=== PATIENT | male | born 1975 | race Two or more races ===

== ENCOUNTER 2018-06-19 16:57 | Observation (INO) | payer OTHER ==
[2018-06-19] MEDS ORDERED: Sodium Chloride 0.9% 1,000 ML IV ONE ×2 (17:15→18:38)
[2018-06-19] MEDS ORDERED: Ondansetron 4 MG/2 ML SDV IVPUSH PRN (17:29)
[2018-06-19 17:45] LABS: CHLORIDE,CL 104 mEq/L (98-106); SODIUM,NA 140 mEq/L (136-145)
--- NOTE | 2018-06-19 17:45 | EDM.PDOC ---
ED HPI GENERAL MEDICAL PROBLEM - General Chief Complaint: Abdominal Pain Stated Complaint: abd pain Time Seen by Provider: 06/19/18 17:13 - History of Present Illness INITIAL COMMENTS - FREE TEXT/NARRATIVE: Liam is a 43 year old male who presents to the ED via [facility] with c/o nausea and syncopal episode. He reports since Friday he has been nauseated and had a weird taste in his mouth. Describes the taste as a sweet, oil like taste. He reports that he has had a very poor appetite all week and has maybe only eaten two pieces of toast all week. Reports he has been more thirsty and has been drinking 2-3 bottles of water/day. He reports that yesterday he thought he was starting to feel better, but then today felt very nauseated again. 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 He reports he had a witnessed syncopal episode when he stood up from the tractor. He does report just prior to this he got very nauseated and vomited x1. Reports he has vomited a couple times the past week as well. EMS was then dispatched to the field. Does report he has had a dry cough and some sinus congestion, but otherwise has had no other symptoms. He denies any fever, chills, weight loss, chest pain, shortness of breath, headache, dizziness, abdominal pain, diarrhea, constipation, dysuria, urinary frequency, hematuria, hematemesis, blood in his stool. He is originally from [facility]. He has been in the [place] since [place]. He works for a [employer] here 9 months out of the year. Denies any recent illness. Denies any drug or alcohol use. Left Abdomen Pain Score (Numeric/FACES): 4 - Related Data Allergies Allergy/AdvReac Type Severity Reaction Status Date / Time vinager Allergy Cannot Uncoded 06/19/18 17:12 Remember Home Meds: Home Meds Levothyroxine 125 mcg PO DAILY 06/19/18 [History] ED ROS GENERAL - Review of Systems Review Of Systems: ROS reveals no pertinent complaints other than HPI. Constitutional: Reports: Decreased Appetite. Denies: Fever, Chills, Weakness, Fatigue HEENT: Reports: Rhinitis Respiratory: Reports: Cough. Denies: Shortness of Breath, Sputum Cardiovascular: Reports: Syncope. Denies: Chest Pain, Blood Pressure Problem, Dyspnea on Exertion, Edema, Lightheadedness, Palpitations Endocrine: Reports: Polydypsia. Denies: Fatigue, Polyuria GI/Abdominal: Reports: Decreased Appetite, Nausea, Vomiting. Denies: Abdominal Pain, Black Stool, Bloody Stool, Constipation, Diarrhea, Distension, Hematemesis , Hematochezia, Melena : Reports: No Symptoms. Denies: Dysuria, Frequency, Urgency Musculoskeletal: Reports: No Symptoms Skin: Reports: Diaphoresis Neurological: Reports: Headache, Syncope. Denies: Confusion, Numbness, Tingling , Weakness Psychiatric: Reports: No Symptoms Hematologic/Lymphatic: Reports: No Symptoms Immunologic: Reports: No Symptoms ED EXAM, GI/ABD - Physical Exam Exam: See Below Exam Limited By: No Limitations General Appearance: Alert, WD/WN, No Apparent Distress Eyes: Bilateral: Normal Appearance, EOMI Ears: Normal External Exam, Normal Canal, Hearing Grossly Normal, Normal TMs Nose: Normal Inspection, Normal Mucosa, No Blood Throat/Mouth: Normal Inspection, Normal Lips, Normal Teeth, Normal Gums, Normal Oropharynx, Normal Voice, No Airway Compromise Head: Atraumatic, Normocephalic Neck: Normal Inspection, Supple, Non-Tender, Full Range of Motion Respiratory/Chest: No Respiratory Distress, Lungs Clear, Normal Breath Sounds, No Accessory Muscle Use, Chest Non-Tender Cardiovascular: Normal Peripheral Pulses, Regular Rate, Rhythm, No Gallop, No JVD, No Murmur, No Rub, Tachycardia. No: No Edema GI/Abdominal Exam: Normal Bowel Sounds, Soft, No Distention, No Abnormal Bruit, Tender (LUQ). No: Distended, Guarding, Rigid, Rebound, Abnormal Bowel Sounds Back Exam: Normal Inspection, Full Range of Motion. No: CVA Tenderness (L), CVA Tenderness (R) Extremities: Normal Inspection, Normal Range of Motion, Non-Tender, Normal Capillary Refill, No Pedal Edema Neurological: Alert, Oriented, CN II-XII Intact, Normal Cognition, Normal Gait, Normal Reflexes, No Motor/Sensory Deficits Psychiatric: Normal Affect, Normal Mood Skin Exam: Warm, Dry, Intact, Normal Color, No Rash Lymphatic: No Adenopathy Course - Vital Signs Last Recorded V/S: Last Vital Signs Temp 98.6 F 06/19/18 17:00 Pulse 116 H 06/19/18 17:00 Resp 16 06/19/18 17:00 BP 121/83 06/19/18 17:00 Pulse Ox 97 06/19/18 17:00 - Orders/Labs/Meds Orders: Active Orders 24 hr Category Date Time Status CXR [Chest 1V Frontal] [CR] Stat Exams 06/19/18 17:28 Taken Ondansetron [Zofran] Med 06/19/18 17:29 Active 4 mg IVPUSH Q6H PRN Sodium Chloride 0.9% [Normal Saline] 1,000 ml Med 06/19/18 18:38 Active IV .BOLUS Medication Orders Sodium Chloride (Normal Saline) 1,000 mls @ 999 mls/hr IV .BOLUS ONE Stop: 06/19/18 19:38 Ondansetron HCl (Zofran) 4 mg IVPUSH Q6H PRN PRN Reason: Nausea/Vomiting Last Admin: 06/19/18 17:34 Dose: 4 mg Labs: Laboratory Tests 06/19/18 06/19/18 06/19/18 Range/Units 17:09 17:09 17:09 WBC 10.8 H (5.0-10.0) 10^3/uL RBC 5.06 (4.50-6.00) 10^6/uL Hgb 15.1 (14.0-18.0) g/dL Hct 44.2 (40.0-54.0) % MCV 87.4 (82.0-94.0) fL MCH 29.8 (27.0-32.0) pg MCHC 34.2 (33.0-38.0) g/dL RDW Coeff of Taran 13.1 (11.0-15.0) % Plt Count 276 (150-400) 10^3/uL Neut % (Auto) 64.2 (35-85) % Lymph % (Auto) 25.0 (10-55) % [place] % (Auto) 9.4 (0-16) % Eos % (Auto) 1.0 (0-5) % Baso % (Auto) 0.4 (0-3) % Neut # (Auto) 6.96 (1.80-7.00) 10^3/uL Lymph # (Auto) 2.71 (1.00-4.80) 10^3/uL [place] # (Auto) 1.02 H (0.00-0.80) 10^3/uL Eos # (Auto) 0.11 (0.00-0.45) 10^3/uL Baso # (Auto) 0.04 10^3/uL D-Dimer, Quantitative (0.00-0.50) Sodium 140 (136-145) mEq/L Potassium 4.4 (3.5-5.0) mEq/L Chloride 104 (98-106) mEq/L Carbon Dioxide 26 (21-32) mmol/L BUN 31 H D (7-18) mg/dL Creatinine 1.0 (0.7-1.3) mg/dL Est Cr Clr Drug Dosing 97.33 mL/min Estimated GFR (MDRD) > 60 (>=60) mL/min Glucose 97 (75-99) mg/dL Calcium 8.5 (8.4-10.1) mg/dL Total Bilirubin 0.5 (0.0-1.0) mg/dL AST 22 (15-37) U/L ALT 45 (12-78) U/L Alkaline Phosphatase 78 (46-116) U/L Lactate Dehydrogenase 169 (100-190) U/L Creatine Kinase 180 (35-232) U/L Troponin I < 0.017 (0.00-0.06) ng/mL C-Reactive Protein 0.9 H (0.2-0.8) mg/dL Total Protein 7.0 (6.4-8.2) g/dL Albumin 3.6 (3.4-5.0) g/dL Amylase 37 (25-115) U/L TSH, Ultra Sensitive 4.04 (0.36-5.60) uIU/mL Urine Color Yellow (YELLOW) Urine Appearance Clear (CLEAR) Urine pH 5.0 (4.5-8.0) Ur Specific [place] 1.020 (1.003-1.020) Urine Protein Negative (NEGATIVE) mg/dL Urine Glucose (UA) Negative (NEGATIVE) mg/dL Urine Ketones 15 H (NEGATIVE) mg/dL Urine Occult Blood Negative (NEGATIVE) Urine Nitrite Negative (NEGATIVE) Urine Bilirubin Negative (NEGATIVE) Urine Urobilinogen 0.2 (0.2-1.0) EU/dL Ur Leukocyte Esterase Negative (NEGATIVE) Urine RBC Not seen (0-5) /HPF Urine WBC Not seen (0-5) /HPF /16/18 Range/Units 17:27 WBC (5.0-10.0) 10^3/uL RBC (4.50-6.00) 10^6/uL Hgb (14.0-18.0) g/dL Hct (40.0-54.0) % MCV (82.0-94.0) fL MCH (27.0-32.0) pg MCHC (33.0-38.0) g/dL RDW Coeff of Taran (11.0-15.0) % Plt Count (150-400) 10^3/uL Neut % (Auto) (35-85) % Lymph % (Auto) (10-55) % [place] % (Auto) (0-16) % Eos % (Auto) (0-5) % Baso % (Auto) (0-3) % Neut # (Auto) (1.80-7.00) 10^3/uL Lymph # (Auto) (1.00-4.80) 10^3/uL [place] # (Auto) (0.00-0.80) 10^3/uL Eos # (Auto) (0.00-0.45) 10^3/uL Baso # (Auto) 10^3/uL D-Dimer, Quantitative 0.43 (0.00-0.50) Sodium (136-145) mEq/L Potassium (3.5-5.0) mEq/L Chloride (98-106) mEq/L Carbon Dioxide (21-32) mmol/L BUN (7-18) mg/dL Creatinine (0.7-1.3) mg/dL Est Cr Clr Drug Dosing mL/min Estimated GFR (MDRD) (>=60) mL/min Glucose (75-99) mg/dL Calcium (8.4-10.1) mg/dL Total Bilirubin (0.0-1.0) mg/dL AST (15-37) U/L ALT (12-78) U/L Alkaline Phosphatase (46-116) U/L Lactate Dehydrogenase (100-190) U/L Creatine Kinase (35-232) U/L Troponin I (0.00-0.06) ng/mL C-Reactive Protein (0.2-0.8) mg/dL Total Protein (6.4-8.2) g/dL Albumin (3.4-5.0) g/dL Amylase (25-115) U/L TSH, Ultra Sensitive (0.36-5.60) uIU/mL Urine Color (YELLOW) Urine Appearance (CLEAR) Urine pH (4.5-8.0) Ur Specific [place] (1.003-1.020) Urine Protein (NEGATIVE) mg/dL Urine Glucose (UA) (NEGATIVE) mg/dL Urine Ketones (NEGATIVE) mg/dL Urine Occult Blood (NEGATIVE) Urine Nitrite (NEGATIVE) Urine Bilirubin (NEGATIVE) Urine Urobilinogen (0.2-1.0) EU/dL Ur Leukocyte Esterase (NEGATIVE) Urine RBC (0-5) /HPF Urine WBC (0-5) /HPF Meds: Medications Generic Name Dose Route Start Last Admin Trade Name Freq PRN Reason Stop Dose Admin Sodium Chloride 1,000 mls @ 999 mls/hr 06/19/18 18:38 Normal Saline IV 06/19/18 19:38 .BOLUS ONE Ondansetron HCl 4 mg 06/19/18 17:29 06/19/18 17:34 Zofran IVPUSH 4 mg Q6H PRN Administration Nausea/Vomiting Discontinued Medications Generic Name Dose Route Start Last Admin Trade Name Freq PRN Reason Stop Dose Admin Sodium Chloride 1,000 mls @ 999 mls/hr 06/19/18 17:15 06/19/18 17:22 Normal Saline IV 06/19/18 18:15 999 mls/hr .BOLUS ONE Administration Sodium Chloride Confirm 06/19/18 18:12 Normal Saline Administered 06/19/18 18:13 Dose 1,000 mls @ as directed .ROUTE .STK-MED ONE - Re-Assessments/Exams Free Text/Narrative Re-Assessment/Exam: 06/19/18 17:20 While assessing patient, had him sit forward to listen to posterior lung sounds. Patient sat up without difficulty and then became unresponsive and slouched over. He did come to within about 10-15 seconds. Heart rate did rise to 139 bpm during episode. Following this he was alert and oriented. Does now c/ o a headache. Patient reports he has no insurance and would like as little done as possible. IVF started. Consulted with [facility]. 06/19/18 18:00 Lab work is all benign. BUN elevated to 31. I suspect patient symptoms may be caused by dehydration. Will give 2 L bolus of fluids and continue to monitor. Departure - Departure Time of Disposition: 18:39 Disposition: Refer to Observation Condition: Good Clinical Impression: Dehydration, Gastroenteritis, Orthostatic syncope - Discharge Information *PRESCRIPTION DRUG MONITORING PROGRAM REVIEWED*: Not Applicable *COPY OF PRESCRIPTION DRUG MONITORING REPORT IN PATIENT THOMAS: Not Applicable Referrals: Juanis Harvey, [facility] [Primary Care Provider] - Forms: ED Department Discharge - Problem List & Annotations (1) Dehydration SNOMED Code(s): 04971184 Code(s): E86.0 - DEHYDRATION Status: Acute Current Visit: Yes (2) Gastroenteritis SNOMED Code(s): 58957781 Code(s): K52.9 - NONINFECTIVE GASTROENTERITIS AND COLITIS, UNSPECIFIED Status: Acute Current Visit: Yes (3) Orthostatic syncope SNOMED Code(s): 955509086 Code(s): I95.1 - ORTHOSTATIC HYPOTENSION Status: Acute Current Visit: Yes - Problem List Review Problem List Initiated/Reviewed/Updated: Yes - My Orders Last 24 Hours: My Active Orders 06/19/18 17:28 CXR [Chest 1V Frontal] [CR] Stat 06/19/18 17:29 Ondansetron [Zofran] 4 mg IVPUSH Q6H PRN 06/19/18 18:38 Sodium Chloride 0.9% [Normal Saline] 1,000 ml IV .BOLUS - Assessment/Plan Admission H&P: Please use this note as an admission H&P Last 24 Hours: My Active Orders 06/19/18 17:28 CXR [Chest 1V Frontal] [CR] Stat 06/19/18 17:29 Ondansetron [Zofran] 4 mg IVPUSH Q6H PRN 06/19/18 18:38 Sodium Chloride 0.9% [Normal Saline] 1,000 ml IV .BOLUS Plan: Will admit patient to observation for continued cardiac monitoring and IVF. I suspect patient's dehydration is causing orthostatic syncopal episodes, as patient pulse increased to 139 when going from lying to sitting, during witnessed syncopal episode. I suspect patient will improve greatly with IVF overnight. Anticipate discharge tomorrow as long as cardiac monitoring etc. is normal. Discussed this with patient who was agreeable to overnight observation stay. Patient transferred to floor in satisfactory condition.
[2018-06-19] MEDS ORDERED: Sodium Chloride 0.9% 1,000 ML ONE (18:12)
[2018-06-19] MEDS ORDERED: Acetaminophen 325 MG Tab PO PRN (19:41)
[2018-06-19] MEDS: Sodium Chloride 0.9% 1,000 ML IV SCH (19:51)
[2018-06-20] MEDS: Sodium Chloride 0.9% 1,000 ML IV SCH (03:16)
[2018-06-20] MEDS ORDERED: Levothyroxine 125 MCG Tab PO SCH (07:00)
[2018-06-20] MEDS ORDERED: Pantoprazole 40 MG Vial ONE (08:10)
[2018-06-20] MEDS ORDERED: Pantoprazole 40 MG Vial IVPUSH ONE (08:12)
[2018-06-20 08:32] LABS: CHLORIDE,CL 107 mEq/L (98-106); SODIUM,NA 141 mEq/L (136-145)
--- NOTE | 2018-06-20 09:16 | PCM.DCSUM1 ---
Discharge Summary - Hospital Course HPI Initial Comments: Liam is a 43 year old male, with PMH significant for hypothyroidism, who was admitted observation status to the hospital yesterday evening 06/19/2018. He had reportedly had nausea since about Friday, as well as couple episodes of vomiting. Did report bad taste in his mouth the last week and had not been eating or drinking much. At time of ED presentation he was working out in the field and had a witnessed syncopal episode, so EMS was called. While in ED he did have another syncopal episode. Patient was given 2 L fluid bolus. Labs were unremarkable in ED. He was monitored overnight. Did continue to have episodes of tachycardia. BP remained stable while lying. Orthostatic VS were positive. BP dropped to 95/53 while standing. Patient had two near syncopal episodes when he attempted to get up to the bathroom, one last night and one this morning. Did not have LOC, but did get light headed and tachycardic. This morning he had emesis with gross blood as well as black stool. Reports this is the first time this has happened. Fecal occult was positive in both. Hgb did drop from 15.1 to 12.3, however some drop likely dilutional. Labs otherwise stable. This morning patient reports other than when he is getting up, he feels fine. He does feel nauseated at times. Did have one 500 mL emesis with gross blood this morning as well as black bowel movement. He denies any chest pain, shortness of breath, dizziness while lying. It was noted per family that he drinks energy drinks quite frequently. Denies any ETOH or drug use. He is originally from [facility]. He works for a [employer] here 9 months out of the year. Consulted with [facility] regarding new onset of upper GI bleed and syncopal episodes. Spoke with Dr. Salter, who accepted the patient for transfer. VSS at time of discharge. Patient will receive 2 L fluid bolus prior to transfer. He will have fluid bolus infusing while enroute. Close monitoring of VS. Discussed risks and benefits of transfer with patient. Risks of transfer include worsening of condition, , and MVA enroute. Benefits of transfer include higher level of care and GI consultation. Risks of nontransfer include worsening of condition, , and no intervention capability. Benefits of nontransfer include convenience and close proximity to home. Patient verbalized understanding and was agreeable to transfer. Patient will be transferred via [facility] to [facility]. Dr. Salter accepting physician. Diagnosis: Stroke: No - Discharge Data Discharge Date: 06/20/18 Discharge Disposition: DC/Tfer to Acute Hospital 02 Condition: Fair - Discharge Diagnosis/Problem(s) (1) Upper GI bleed SNOMED Code(s): 14673445 ICD Code: K92.2 - GASTROINTESTINAL HEMORRHAGE, UNSPECIFIED Status: Acute (2) Orthostatic syncope SNOMED Code(s): 416126033 ICD Code: I95.1 - ORTHOSTATIC HYPOTENSION Status: Acute - Patient Instructions Diet: NPO Activity: Bedrest - Discharge Plan *PRESCRIPTION DRUG MONITORING PROGRAM REVIEWED*: Not Applicable *COPY OF PRESCRIPTION DRUG MONITORING REPORT IN PATIENT THOMAS: Not Applicable Home Medications: Home Meds Levothyroxine 125 mcg PO DAILY 06/19/18 [History] Forms: ED Department Discharge Referrals: Juanis Harvey, [facility] SPECIALIST [Primary Care Provider] - - Discharge Summary/Plan Comment DC Time >30 min.: Yes (assessment, lab review, coordinating transfer, discharge summary) - General Info Date of Service: 06/20/18 Admission Dx/Problem (Free Text: Orthostatic Syncope Dehydration Upper GI Bleed Subjective Update: Liam reports he had another episode this morning when he attempted to get up to the bathroom to have a bowel movement. Nursing reports while on the toliet he got nauseated and had a 500 mL emesis with gross blood. He then had a very dark stool. He reports during this he felt very poorly, but now since he has gotten back into bed he feels fine again. Continues to deny any abdominal pain, chest pain, shortness of breath. He is nauseated. He is resting comfortably in bed at time of rounds. Functional Status: Reports: Pain Controlled, Urinating, New Symptoms ( hematemesis & melena). Denies: Tolerating Diet, Ambulating - Review of Systems General: Reports: Weakness, Fatigue. Denies: Fever, Chills, Appetite HEENT: Reports: Sinus Congestion. Denies: Visual Changes Pulmonary: Reports: Cough. Denies: Shortness of Breath, Sputum, Hemoptysis, Wheezing Cardiovascular: Reports: Lightheadedness. Denies: Chest Pain, Palpitations, Dyspnea on Exertion, Orthopnea, Edema Gastrointestinal: Reports: Decreased Appetite, Melena, Nausea, Vomiting (gross blood ). Denies: Abdominal Pain, Constipation, Diarrhea, Hematochezia Genitourinary: Reports: No Symptoms Musculoskeletal: Reports: No Symptoms Skin: Reports: Pallor Neurological: Reports: Dizziness, Headache (frontal), Syncope, Weakness. Denies : Confusion, Numbness, Tingling, Tremors, Change in Speech Psychiatric: Reports: No Symptoms - Patient Data Vitals - Most Recent: Last Vital Signs Temp 98.1 F 06/20/18 08:19 Pulse 109 H 06/20/18 08:19 Resp 20 06/20/18 08:19 BP 114/81 06/20/18 08:19 Pulse Ox 98 06/20/18 08:19 Weight - Most Recent: 274 lb 8 oz I&O - Last 24 hours: Intake & Output 06/19/18 06/20/18 06/20/18 22:59 06:59 14:59 Intake Total 2227 Output Total 800 Balance 1427 Lab Results - Last 24 hrs: Laboratory Results - last 24 hr 06/19/18 06/19/18 06/19/18 Range/Units 17:09 17:09 17:09 WBC 10.8 H (5.0-10.0) 10^3/uL RBC 5.06 (4.50-6.00) 10^6/uL Hgb 15.1 (14.0-18.0) g/dL Hct 44.2 (40.0-54.0) % MCV 87.4 (82.0-94.0) fL MCH 29.8 (27.0-32.0) pg MCHC 34.2 (33.0-38.0) g/dL RDW Coeff of Taran 13.1 (11.0-15.0) % Plt Count 276 (150-400) 10^3/uL Neut % (Auto) 64.2 (35-85) % Lymph % (Auto) 25.0 (10-55) % [place] % (Auto) 9.4 (0-16) % Eos % (Auto) 1.0 (0-5) % Baso % (Auto) 0.4 (0-3) % Neut # (Auto) 6.96 (1.80-7.00) 10^3/uL Lymph # (Auto) 2.71 (1.00-4.80) 10^3/uL [place] # (Auto) 1.02 H (0.00-0.80) 10^3/uL Eos # (Auto) 0.11 (0.00-0.45) 10^3/uL Baso # (Auto) 0.04 10^3/uL D-Dimer, Quantitative (0.00-0.50) Sodium 140 (136-145) mEq/L Potassium 4.4 (3.5-5.0) mEq/L Chloride 104 (98-106) mEq/L Carbon Dioxide 26 (21-32) mmol/L BUN 31 H D (7-18) mg/dL Creatinine 1.0 (0.7-1.3) mg/dL Est Cr Clr Drug Dosing 97.33 mL/min Estimated GFR (MDRD) > 60 (>=60) mL/min Glucose 97 (75-99) mg/dL Calcium 8.5 (8.4-10.1) mg/dL Total Bilirubin 0.5 (0.0-1.0) mg/dL AST 22 (15-37) U/L ALT 45 (12-78) U/L Alkaline Phosphatase 78 (46-116) U/L Lactate Dehydrogenase 169 (100-190) U/L Creatine Kinase 180 (35-232) U/L Troponin I < 0.017 (0.00-0.06) ng/mL C-Reactive Protein 0.9 H (0.2-0.8) mg/dL Total Protein 7.0 (6.4-8.2) g/dL Albumin 3.6 (3.4-5.0) g/dL Amylase 37 (25-115) U/L TSH, Ultra Sensitive 4.04 (0.36-5.60) uIU/mL Urine Color Yellow (YELLOW) Urine Appearance Clear (CLEAR) Urine pH 5.0 (4.5-8.0) Ur Specific [place] 1.020 (1.003-1.020) Urine Protein Negative (NEGATIVE) mg/dL Urine Glucose (UA) Negative (NEGATIVE) mg/dL Urine Ketones 15 H (NEGATIVE) mg/dL Urine Occult Blood Negative (NEGATIVE) Urine Nitrite Negative (NEGATIVE) Urine Bilirubin Negative (NEGATIVE) Urine Urobilinogen 0.2 (0.2-1.0) EU/dL Ur Leukocyte Esterase Negative (NEGATIVE) Urine RBC Not seen (0-5) /HPF Urine WBC Not seen (0-5) /HPF 06/19/18 06/20/18 06/20/18 Range/Units 17:27 08:14 08:14 WBC 10.4 H (5.0-10.0) 10^3/uL RBC 4.13 L (4.50-6.00) 10^6/uL Hgb 12.3 L (14.0-18.0) g/dL Hct 37.3 L (40.0-54.0) % MCV 90.3 (82.0-94.0) fL MCH 29.8 (27.0-32.0) pg MCHC 33.0 (33.0-38.0) g/dL RDW Coeff of [place] 13.2 (11.0-15.0) % Plt Count 271 (150-400) 10^3/uL Neut % (Auto) 61.7 (35-85) % Lymph % (Auto) 28.3 (10-55) % [place] % (Auto) 8.8 (0-16) % Eos % (Auto) 1.0 (0-5) % Baso % (Auto) 0.2 (0-3) % Neut # (Auto) 6.39 (1.80-7.00) 10^3/uL Lymph # (Auto) 2.93 (1.00-4.80) 10^3/uL [place] # (Auto) 0.91 H (0.00-0.80) 10^3/uL Eos # (Auto) 0.10 (0.00-0.45) 10^3/uL Baso # (Auto) 0.02 10^3/uL D-Dimer, Quantitative 0.43 (0.00-0.50) Sodium 141 (136-145) mEq/L Potassium 5.0 (3.5-5.0) mEq/L Chloride 107 H (98-106) mEq/L Carbon Dioxide 23 (21-32) mmol/L BUN 43 H (7-18) mg/dL Creatinine 1.0 (0.7-1.3) mg/dL Est Cr Clr Drug Dosing 97.33 mL/min Estimated GFR (MDRD) > 60 (>=60) mL/min Glucose 122 H D (75-99) mg/dL Calcium 7.7 L (8.4-10.1) mg/dL Total Bilirubin (0.0-1.0) mg/dL AST (15-37) U/L ALT (12-78) U/L Alkaline Phosphatase (46-116) U/L Lactate Dehydrogenase (100-190) U/L Creatine Kinase (35-232) U/L Troponin I (0.00-0.06) ng/mL C-Reactive Protein 0.8 (0.2-0.8) mg/dL Total Protein (6.4-8.2) g/dL Albumin (3.4-5.0) g/dL Amylase (25-115) U/L TSH, Ultra Sensitive (0.36-5.60) uIU/mL Urine Color (YELLOW) Urine Appearance (CLEAR) Urine pH (4.5-8.0) Ur Specific [place] (1.003-1.020) Urine Protein (NEGATIVE) mg/dL Urine Glucose (UA) (NEGATIVE) mg/dL Urine Ketones (NEGATIVE) mg/dL Urine Occult Blood (NEGATIVE) Urine Nitrite (NEGATIVE) Urine Bilirubin (NEGATIVE) Urine Urobilinogen (0.2-1.0) EU/dL Ur Leukocyte Esterase (NEGATIVE) Urine RBC (0-5) /HPF Urine WBC (0-5) /HPF MELODIE Results - Last 24 hrs: Microbiology 06/20/18 08:25 Gastric Occult Blood - Final Gastric Fluid 06/20/18 08:25 Stool Occult Blood (MELODIE) - Final Stool / Feces Med Orders - Current: Current Medications Acetaminophen (Tylenol) 650 mg PO Q4H PRN PRN Reason: Pain (Mild 1-3)/fever Last Admin: 06/19/18 22:50 Dose: 650 mg Sodium Chloride (Normal Saline) 1,000 mls @ 125 mls/hr IV ASDIRECTED FABIAN Last Admin: 06/20/18 03:16 Dose: 125 mls/hr Levothyroxine Sodium (Levothyroxine) 125 mcg PO DAILY@0700 [facility] Ondansetron HCl (Zofran) 4 mg IVPUSH Q6H PRN PRN Reason: Nausea/Vomiting Last Admin: 06/19/18 17:34 Dose: 4 mg Discontinued Medications Sodium Chloride (Normal Saline) 1,000 mls @ 999 mls/hr IV .BOLUS ONE Stop: 06/19/18 18:15 Last Admin: 06/19/18 17:22 Dose: 999 mls/hr Sodium Chloride (Normal Saline) Confirm Administered Dose 1,000 mls @ as directed .ROUTE .STK-MED ONE Stop: 06/19/18 18:13 Last Admin: 06/19/18 18:40 Dose: Not Given Sodium Chloride (Normal Saline) 1,000 mls @ 999 mls/hr IV .BOLUS ONE Stop: 06/19/18 19:38 Last Admin: 06/19/18 18:39 Dose: 999 mls/hr Pantoprazole Sodium (Protonix Iv) Confirm Administered Dose 40 mg .ROUTE .STK -MED ONE Stop: 06/20/18 08:11 Last Admin: 06/20/18 08:13 Dose: Not Given Pantoprazole Sodium (Protonix Iv) 40 mg IVPUSH ONETIME ONE Stop: 06/20/18 08:13 Last Admin: 06/20/18 08:12 Dose: 40 mg - Exam General: Reports: Alert, Oriented, Mild Distress HEENT: Reports: Pupils Equal, Pupils Reactive, EOMI, Mucous Membr. Moist/[place] Neck: Reports: Supple Lungs: Reports: Clear to Auscultation, Normal Respiratory Effort Cardiovascular: Reports: Regular Rhythm, Tachycardia GI/Abdominal Exam: Normal Bowel Sounds, Soft, No Distention, No Abnormal Bruit, No Mass, Tender (LUQ). No: Guarding, Rigid Back Exam: Reports: Normal Inspection, Full Range of Motion Extremities: Normal Inspection, Normal Range of Motion, Non-Tender, No Pedal Edema, Normal Capillary Refill Skin: Reports: Warm, Intact Neurological: Reports: No New Focal Deficit Psy/Mental Status: Reports: Alert, Normal Affect, Normal Mood *Q Meaningful Use (DIS) - VTE *Q VTE Anticoagulation Contraindications: Med/TX Not Indicated/Need (GI bleed)
[2018-06-20] MEDS ORDERED: Sodium Chloride 0.9% 1,000 ML IV ONE (09:31)
== END 2018-06-20 10:21 ==
LOC: CC.ED 16:57 → CC.MS 18:44 → UNDOADMOB 19:01 → UNDODISOB 06-20 10:21
PROVIDERS: ADMIT Nurse Practitioner Family; ATTEND Family Medicine
DX: I95.1 Orthostatic hypotension (principal); E86.0 Dehydration; K92.2 Gastrointestinal hemorrhage, unspecified; Z79.899 Other long term (current) drug therapy; Z91.018 Allergy to other foods; E03.9 Hypothyroidism, unspecified
CPT/HCPCS: 36415; 71045; 80048; 80053; 81001; 82150; 82271; 82272; 82550; 82962; 83615; 84443; 84484; 85025; 85379; 86140; 93005; 96365; 96366; 96375; 99285; A9270; C9113; J2405; J7030; 96361; 96374; G0378